=== PATIENT | male | born 1970 | race Caucasian/White ===

== ENCOUNTER 2025-09-01 14:23 | Outpatient (CLI) | payer OTHER ==
[~2025-09-01 14:23] MED LIST: FENO145T38 PO; IBUP600T52 PO; LACT1CAP65 PO; OMEP20TA23 PO
--- NOTE | 2025-09-02 19:50 | RADIOLOGY REPORT ---
EXAM: MR MRI UPPER EXTREMITY RIGHT HISTORY: PAIN IN R SHOULDER, BICIPITAL TENDINITIS, COMPARISON: None TECHNIQUE: Multiplanar, multisequence MRI imaging was performed. FINDINGS: High-grade partial thickness versus functionally full-thickness tear of the mid to posterior supraspinatus tendon fibers measuring 1.4 cm AP x 1.2 cm LR. There maybe a few remaining intact overlying bursal surface fibers that appear frayed. Infraspinatus and teres minor tendons are intact. Subscapularis tendon is intact. Minimal increased signal within the intra-articular portion of the long head biceps tendon. Minimal tenosynovitis. No obvious labral pathology within the limits of the study. No paralabral cysts. Trace fluid in the subacromial subdeltoid bursa. Mild degenerative changes of the glenohumeral joint. Moderate degenerative changes of the AC joint. Intramuscular signal is normal with no significant atrophy or edema. Subcutaneous soft tissues are clear. IMPRESSION: High-grade partial versus functionally full-thickness tear of the mid to posterior supraspinatus tendon fibers. Mild tendinopathy of the long head biceps tendon with tenosynovitis. Degenerative changes of the glenohumeral and AC joints.
== END 2025-09-01 23:59 | disposition home or self-care (01) ==
LOC: MRI02 14:23
PROVIDERS: ATTEND Specialist
DX: M75.121 Complete rotator cuff tear or rupture of right shoulder, not specified as traumatic (principal); M25.511 Pain in right shoulder; M75.21 Bicipital tendinitis, right shoulder; M19.011 Primary osteoarthritis, right shoulder
CPT/HCPCS: 73221